=== PATIENT | female | born 1945 | race Caucasian/White ===

== ENCOUNTER 2017-04-18 08:00 | Outpatient (CLI) | payer MEDICARE | END 2017-04-18 08:01 | disposition home or self-care (01) | LOC: BICMAMMO 08:00 | PROVIDERS: ATTEND Family Medicine | DX: Z12.31 Encounter for screening mammogram for malignant neoplasm of breast (principal) | CPT/HCPCS: 77063; G0202; 77067 ==

== ENCOUNTER 2017-06-16 10:18 | Outpatient (CLI) | payer MEDICARE, OTHER ==
[2017-06-16 12:17] LABS: Anion Gap 11 mmol/L (10-20); BUN (Urea Nitrogen) 16 mg/dL (9.8-20.1); Calc. Creatinine Clearance 0 mL/min (70-130); Calcium 9.9 mg/dL (7.8-10.44); Carbon Dioxide 28 mmol/L (23-31); Chloride 106 mmol/L (98-107); Estimated GFR-MDRD 81; Glucose 107 mg/dL (83-110); Potassium 4.1 mmol/L (3.5-5.1); Sodium 141 mmol/L (136-145)
[2017-06-16 12:18] LABS: #Eosinphils 0.1 thou/uL (0.0-0.7); #Lymphocytes 0.7 thou/uL (1.20-3.40); #Monocytes 0.2 thou/uL (0.11-0.59); #Neutrophils 1.7 thou/uL (1.40-6.50); %Eosinophils 4.3 % (0.0-10.0); %Lymphocytes 25.8 % (21.0-51.0); %Monocytes 8.5 % (0.0-10.0); %Neutrophils 60.3 % (42.0-75.0); Hemoglobin 13.1 g/dL (12.0-16.0); Mean Corpuscular HGB CONC 33.5 g/dL (32.0-36.0); Mean Corpuscular Hemoglobin 32.9 pg (27.0-31.0); Mean Corpuscular Volume 98.1 fl (81.0-99.0); Mean Platelet Volume 9.2 fL (7.4-10.4); Platelet Count 82 thou/uL (130-400); RBC Distribution Width 13.4 % (11.5-14.5); Red Blood Cell (RBC) Count 3.99 mill/uL (4.20-5.40); White Blood Cell (WBC) Count 2.8 thou/uL (4.8-10.8)
--- NOTE | 2017-08-23 13:40 | EKG ---
Test Reason : Blood Pressure : / mmHG Vent. Rate : 068 BPM Atrial Rate : 068 BPM P-R Int : 194 ms QRS Dur : 094 ms QT Int : 430 ms P-R-T Axes : 064 060 071 degrees QTc Int : 457 ms Normal sinus rhythm Cannot rule out Anterior infarct , age undetermined Confirmed by ANDREY MORRIS, JASE ([id number]) on 08/23/2017 1:40:41 PM Referred By: WHITNEY Confirmed By:JASE BALDERAS MD
== END 2017-06-16 10:19 | disposition home or self-care (01) ==
LOC: LABBT 10:18
PROVIDERS: ATTEND Surgery
DX: Z01.810 Encounter for preprocedural cardiovascular examination (principal); Z01.812 Encounter for preprocedural laboratory examination; K43.2 Incisional hernia without obstruction or gangrene
CPT/HCPCS: 80048; 85025; 93005; 93010

== ENCOUNTER → 2017-06-19 | Day surgery (SDC) | payer MEDICARE, OTHER ==
[2017-06-16 10:42] VITALS: BMI 35.5
[~2017-06-19] MED LIST: Bupivacaine 0.25% HCL 30 ML VIAL ONE; CEFAZOLIN/Water 2 GM/20 ML SYRINGE ONE; Dexamethasone 20 MG/5 ML VIAL ONE; Fentanyl 100 MCG/2 ML VIAL ONE; Glycopyrrolate 0.2 MG/ML 5 ML SYRINGE ONE; HYDROmorphone 0.5 MG/0.5 ML SYRINGE ONE; Ketorolac Tromethamine 30 MG/ML VIAL ONE; Lidocaine 1% PF 5 ML VIAL ONE; Lidocaine 1% w/Epinephrine 1:200K 30 ML VIAL ONE; Metoclopramide HCl 10 MG/2 ML VIAL ONE; Ondansetron PF 4 MG/2 ML Vial ONE; PROPOFOL 200 MG/20 ML VIAL ONE; Succinylcholine Chloride 20 MG/ML 10 ml SYRINGE FS ONE
--- NOTE | 2017-06-19 13:34 | OP ---
DATE OF PROCEDURE: 06/19/2017 PREOPERATIVE DIAGNOSIS: Incisional hernia. POSTOPERATIVE DIAGNOSIS: Incisional hernia. PROCEDURE: Laparoscopic da Addy incisional hernia repair with Symbotex mesh 10 x 15 cm. SURGEON: Joe Draper M.D. ANESTHESIA: General. ESTIMATED BLOOD LOSS: Minimal. COMPLICATIONS: None. TECHNIQUE: The patient was taken to the operating room and laid supine on the table. After general anesthetic was obtained, the arms were tucked at the side. A Moreno catheter was placed. The abdomen is prepped and draped in a sterile fashion. Left subcostal 12 mm Optiview trocar placed without inj ury. High-flow pneumoperitoneum was obtained. Left and right upper abdominal and lateral 8 mm robot trocars were placed. The robot was brought in on the patient's right and docked to the ports. Ther e were several posterior abdominal wall adhesions that were taken down using sharp dissection with ca utery. There was no damage to any intraabdominal structures during the dissection. There were sever al small defects in the posterior midline around the umbilicus, none of them more than a centimeter i n size. The peritoneum was taken down exposing the posterior fascia. Because there were multiple sm all defects the decision was made not to close these, 10 x [address] mesh brought into the s terile field. The center was marked, a Vicryl suture was placed. It was rolled and placed into the abdominal cavity. A GraNee needle was able to pull it up over the center of the defects and hold the mesh up against the posterior abdominal wall. Barbed absorbable suture double armed was used to sew the periphery of the mesh to the posterior fascia circumferentially all the way around. The sutures on the other side were overlapped to lock them in place. [place] were both removed from the abdomin al cavity. All port sites were infiltrated using local anesthetic. No ongoing bleeding in the abdom en, no evidence of any damage to any intraabdominal structures. The 12 mm camera trocar was closed u sing GraNee needle Vicryl tie, pneumoperitoneum was let down. The ports were removed and the skin in cisions were closed using 4-0 Monocryl and Dermabond. The patient was en route to recovery room in s table condition. All instrument counts, needle counts, and lap counts were correct.
== END ==
LOC: SDC 05:46
PROVIDERS: ATTEND Surgery
PROC: 0WUF4JZ Supplement Abdominal Wall with Synthetic Substitute, Percutaneous Endoscopic Approach (ICD-10-PCS; principal; 2017-06-19)
PROC: 8E0W4CZ Robotic Assisted Procedure of Trunk Region, Percutaneous Endoscopic Approach (ICD-10-PCS; 2017-06-19)
DX: K43.2 Incisional hernia without obstruction or gangrene (principal); E11.9 Type 2 diabetes mellitus without complications; Z79.84 Long term (current) use of oral hypoglycemic drugs; Z79.82 Long term (current) use of aspirin; Z79.2 Long term (current) use of antibiotics; Z79.899 Other long term (current) drug therapy; Z98.51 Tubal ligation status; Z90.49 Acquired absence of other specified parts of digestive tract; Z90.710 Acquired absence of both cervix and uterus; Z98.890 Other specified postprocedural states
CPT/HCPCS: J0131; J1100; J1170; J1885; J2001; J2405; J2704; J2765; J3010; S0020

== ENCOUNTER 2018-04-20 11:12 | Outpatient (CLI) | payer MEDICARE, OTHER | END 2018-04-20 11:13 | disposition home or self-care (01) | LOC: BICMAMMO 11:12 | PROVIDERS: ATTEND Family Medicine | DX: Z12.31 Encounter for screening mammogram for malignant neoplasm of breast (principal) | CPT/HCPCS: 77063; 77067 ==

== ENCOUNTER 2018-11-16 12:51 | Outpatient (CLI) | payer MEDICARE, OTHER ==
--- NOTE | 2018-11-16 14:59 | RAD ---
RIGHT ANKLE 3 VIEWS: HISTORY: Right ankle pain, injury. FINDINGS/IMPRESSION: Soft tissue swelling is present. The ankle mortise is maintained. No acute fracture or dislocation is seen. There are calcaneal spurs. POS: OFF
== END 2018-11-16 12:52 | disposition home or self-care (01) ==
LOC: BICRAD 12:51
PROVIDERS: ATTEND Family Medicine
DX: S96.911A Strain of unspecified muscle and tendon at ankle and foot level, right foot, initial encounter (principal); M79.89 Other specified soft tissue disorders; M77.31 Calcaneal spur, right foot

== ENCOUNTER 2019-04-21 09:15 | Outpatient (CLI) | payer MEDICARE, OTHER ==
--- NOTE | 2019-04-21 10:16 | MMO ---
Bilateral MAMMO Bilat Screen [facility]. CLINICAL HISTORY: Patient is 73 years old and is seen for screening. The patient has no family history of breast cancer. The patient has no personal history of cancer. VIEWS: The views performed were: bilateral craniocaudal with tomosynthesis and bilateral mediolateral oblique with tomosynthesis. FILMS COMPARED: The present examination has been compared to prior imaging studies performed at [facility] on 04/17/2016, 04/18/2017 and 04/20/2018, and at [facility] on 01/27/2015. This study has been interpreted with the assistance of computer-aided detection. MAMMOGRAM FINDINGS: There are scattered fibroglandular densities. There are stable benign appearing calcifications seen in both breasts. There are no suspicious masses, suspicious calcifications, or new areas of architectural distortion. IMPRESSION: THERE IS NO MAMMOGRAPHIC EVIDENCE OF MALIGNANCY. A ROUTINE FOLLOW-UP MAMMOGRAM IN 1 YEAR IS RECOMMENDED. THE RESULTS OF THIS EXAM WERE SENT TO THE PATIENT. ACR BI-RADS Category 2 - Benign finding MAMMOGRAPHY NOTE: 1. A negative mammogram report should not delay a biopsy if a dominant of clinically suspicious mass is present. 2. Approximately 10% to 15% of breast cancers are not detected by mammography. 3. Adenosis and dense breasts may obscure an underlying neoplasm. Reported by: ALISSA SANCHEZ MD Electonically Signed: [id number]
== END 2019-04-21 09:16 | disposition home or self-care (01) ==
LOC: BICMAMMO 09:15
PROVIDERS: ATTEND Family Medicine
DX: Z12.31 Encounter for screening mammogram for malignant neoplasm of breast (principal)
CPT/HCPCS: 77063; 77067

== ENCOUNTER 2019-08-09 07:04 | Outpatient (CLI) | payer MEDICARE, OTHER ==
--- NOTE | 2019-08-09 07:42 | ULT ---
Sonogram abdomen complete HISTORY: Cirrhosis. Abdominal pain. Splenomegaly. FINDINGS: Gallbladder is surgically absent. Common duct is 0.8 cm. Liver is heterogeneous with a nodular contour. No focal mass or intrahepatic biliary dilatation. No f ree fluid. Spleen measures up to 16.7 cm. Cortical thinning of each kidney. Visualized portions of abdominal aorta, IVC, and pancreas are withi n normal limits. IMPRESSION : Status post cholecystectomy. No evidence of biliary obstruction. Cirrhotic appearance of the liver. Findings of portal venous hypertension include moderate splenomega ly. Mild diffuse bilateral renal cortical atrophy.
== END 2019-08-09 07:05 | disposition home or self-care (01) ==
LOC: BICULT 07:04
PROVIDERS: ATTEND Internal Medicine Hematology & Oncology
DX: K74.60 Unspecified cirrhosis of liver (principal); K75.81 Nonalcoholic steatohepatitis (NASH); R16.1 Splenomegaly, not elsewhere classified; N28.89 Other specified disorders of kidney and ureter; K76.6 Portal hypertension; Z90.49 Acquired absence of other specified parts of digestive tract
CPT/HCPCS: 93975

== ENCOUNTER 2020-04-21 08:18 | Outpatient (CLI) | payer MEDICARE, OTHER ==
--- NOTE | 2020-04-21 09:39 | ULT ---
HEPATIC ULTRASOUND AND DOPPLER: Date: 04/21/2020 Lorenzo scale images of the liver obtained, along with Doppler studies of the hepatic vessels with color Doppler and spectral analysis. INDICATION: Cirrhosis. FINDINGS: Liver is mildly heterogeneous with mildly irregular margins consistent with the history of cirrhosis. No liver mass identified. Color Doppler and spectral analysis performed of hepatic vessels. Portal veins, hepatic veins, hepati c artery, and splenic vein all show normal direction of blood flow. The spleen is enlarged measuring up to 17.0 cm, suggesting portal hypertension. Patient is status post cholecystectomy. The common bile duct is mildly prominent, measured at 8.0 mm, which is probably related to the post c holecystectomy status. No significant intrahepatic ductal dilatation. The pancreas is partially imaged and appears unremarkable as visualized. Right kidney is not imaged. IMPRESSION: 1. Liver is mildly heterogeneous with irregular margins consistent with history of cirrhosis. No dorian er mass. 2. Hepatic Doppler studies show normal blood flow in the hepatic vessels. 3. Splenomegaly is noted. POS: AGW
== END 2020-04-21 08:19 | disposition home or self-care (01) ==
LOC: BICULT 08:18
PROVIDERS: ATTEND Internal Medicine
DX: K74.60 Unspecified cirrhosis of liver (principal); R60.0 Localized edema; K76.89 Other specified diseases of liver; R16.1 Splenomegaly, not elsewhere classified
CPT/HCPCS: 76705

== ENCOUNTER 2020-09-29 08:42 | Outpatient (CLI) | payer MEDICARE, OTHER | END 2020-09-29 08:43 | disposition home or self-care (01) | LOC: BICULT 08:42 | PROVIDERS: ATTEND Internal Medicine | DX: K74.60 Unspecified cirrhosis of liver (principal); I85.00 Esophageal varices without bleeding; R60.0 Localized edema; Z90.49 Acquired absence of other specified parts of digestive tract | CPT/HCPCS: 76705 ==

== ENCOUNTER 2021-10-17 08:25 | Outpatient (CLI) | payer MEDICARE, OTHER | END 2021-10-17 08:26 | disposition home or self-care (01) | LOC: BICULT 08:25 | PROVIDERS: ATTEND Internal Medicine | DX: K74.60 Unspecified cirrhosis of liver (principal); I85.10 Secondary esophageal varices without bleeding; R60.0 Localized edema; R16.1 Splenomegaly, not elsewhere classified; Z90.49 Acquired absence of other specified parts of digestive tract | CPT/HCPCS: 76705 ==

== ENCOUNTER 2023-01-04 18:50 | Inpatient (IN) | payer MEDICARE, OTHER ==
[2023-01-04 20:00] LABS: #Eosinphils 0.1 thou/uL (0.0-0.7); #Monocytes 0.3 thou/uL (0.11-0.59); #Neutrophils 4.8 thou/uL (1.40-6.50); %Basophils 0.4 % (0.0-1.0); %Eosinophils 0.9 % (0.0-10.0); %Lymphocytes 4.1 % (21.0-51.0); %Monocytes 5.2 % (0.0-10.0); Hematocrit 29.7 % (36.0-47.0); Hemoglobin 10.2 g/dL (12.0-16.0); Mean Corpuscular HGB CONC 34.3 g/dL (32.0-36.0); Mean Corpuscular Hemoglobin 33.7 pg (27.0-31.0); Mean Platelet Volume 10.9 fL (7.4-10.4); Red Blood Cell (RBC) Count 3.03 mill/uL (4.20-5.40); White Blood Cell (WBC) Count 5.4 10x3/uL (4.8-10.8)
[2023-01-04 20:01] LABS: Platelet Count 70 10x3/uL (130-400)
[2023-01-04 20:20] LABS: ALT (SGPT) 27 U/L (8-55); AST (SGOT) 38 U/L (5-34); Alkaline Phosphatase 90 U/L (40-110); Anion Gap 14 mmol/L (10-20); BUN (Urea Nitrogen) 33 mg/dL (9.8-20.1); Bilirubin, Total 2.3 mg/dL (0.2-1.2); Calc. Creatinine Clearance 0 mL/min (70-130); Calcium 9.2 mg/dL (7.8-10.44); Carbon Dioxide 19 mmol/L (23-31); Chloride 109 mmol/L (98-107); Estimated GFR 27; Globulin 3.5 g/dL (2.4-3.5); Glucose 134 mg/dL (83-110); Potassium 4.8 mmol/L (3.5-5.1); Protein, Total 6.5 g/dL (5.8-8.1); Sodium 137 mmol/L (136-145)
[2023-01-04 20:24] LABS: Troponin I 0.047 ng/mL (< 0.028)
[2023-01-04] MEDS ORDERED: Aspirin Chewable 81 MG TAB ONE (20:54)
[2023-01-04] MEDS ORDERED: Ondansetron ODT 4 MG TAB PO PRN (21:35)
[2023-01-04] MEDS ORDERED: Senokot S 8.6-50 MG TAB PO PRN (21:35)
[2023-01-04] MEDS ORDERED: Acetaminophen 325 MG TAB PO PRN (21:35)
[2023-01-04] MEDS ORDERED: Calcium Carbonate 500 MG ChewTAB PO PRN (21:35)
[2023-01-04 23:28] LABS: Hemoglobin A1c 7.1 % (4.0-6.0)
[2023-01-04 23:46] LABS: Troponin I 0.083 ng/mL (< 0.028)
[2023-01-05 00:03] VITALS: BMI 37.0
[2023-01-05 01:51] LABS: Troponin I 0.093 ng/mL (< 0.028)
[2023-01-05 05:02] LABS: #Monocytes 0.3 thou/uL (0.11-0.59); #Neutrophils 4.1 thou/uL (1.40-6.50); %Basophils 0.4 % (0.0-1.0); %Eosinophils 0.4 % (0.0-10.0); %Monocytes 6.7 % (0.0-10.0); %Neutrophils 86.1 % (42.0-75.0); Hematocrit 24.7 % (36.0-47.0); Hemoglobin 8.2 g/dL (12.0-16.0); Mean Corpuscular HGB CONC 33.2 g/dL (32.0-36.0); Mean Corpuscular Hemoglobin 33.3 pg (27.0-31.0); Mean Corpuscular Volume 100.4 fl (78.0-98.0); Mean Platelet Volume 11.1 fL (7.4-10.4); RBC Distribution Width 14.1 % (11.5-14.5); Red Blood Cell (RBC) Count 2.46 mill/uL (4.20-5.40); White Blood Cell (WBC) Count 4.8 10x3/uL (4.8-10.8)
[2023-01-05 05:12] LABS: Platelet Count 59 10x3/uL (130-400)
[2023-01-05 05:14] LABS: Manual Diff?? YES
[2023-01-05 05:27] LABS: Anion Gap 13 mmol/L (10-20); BUN (Urea Nitrogen) 35 mg/dL (9.8-20.1); Calc. Creatinine Clearance 38 mL/min (70-130); Calcium 8.5 mg/dL (7.8-10.44); Carbon Dioxide 19 mmol/L (23-31); Chloride 108 mmol/L (98-107); Estimated GFR 27; Glucose 252 mg/dL (83-110); Magnesium 1.3 mg/dL (1.6-2.6); Sodium 134 mmol/L (136-145)
[2023-01-05] MEDS ORDERED: Glucagon 1 MG/ML KIT IM PRN (05:47)
[2023-01-05] MEDS ORDERED: Dextrose 50% Abboject 50 ML SYRINGE SLOW IVP PRN (05:47)
[2023-01-05] MEDS ORDERED: Dextrose 5% in Water 1,000 ML IV PRN (05:47)
[2023-01-05] MEDS ORDERED: HumaLOG 300 UNITS/3 ML VIAL SC PRN (05:47)
[2023-01-05] MEDS ORDERED: Magnesium 2 GM/50 ML(in water) 2 GM in Premix Bag 1 BAG IVPB SCH (06:00)
[2023-01-05] MEDS ORDERED: Insulin Regular 300 UNITS/3 ML VIAL IVP SCH (06:00)
[2023-01-05 06:03] LABS: Anisocytosis SLIGHT = 6-15 cells HPF (0-5); Band 12 % (5-11); Burr Cells MODERATE= 6-15 cells HPF (0-1); CellaVision Operator ID lab.sh2; Eosinophils 1 % (0-10); Lymphocytes 5 % (21-51); Macrocytosis SLIGHT = 6-15 cells HPF (0-5); Monocytes 1 % (0-10); Neutrophil 80 % (42-75); Ovalocytes SLIGHT = 2-5 cells HPF (0-1); Platelet Adequacy Comment Significant decrease; Poikilocytosis MODERATE=16-30 cells HPF (0-5); Polychromasia SLIGHT = 2-3 cells HPF (0-2); Smudge Cells 2.9 %; Total Cell Count 102
[2023-01-05] MEDS ORDERED: Calcium Gluc 4.6 MEQ/10 ML (100 MG/ML) SLOW IVP SCH (08:45)
[2023-01-05] MEDS ORDERED: Sodium Chloride 0.9% 1,000 ML IV SCH (08:45)
[2023-01-05] MEDS ORDERED: Magnesium Sulfate In Water 4 GM in Premix Bag 1 BAG IVPB SCH (08:45)
[2023-01-05] MEDS: HumaLOG 300 UNITS/3 ML VIAL SC PRN ×2 (09:53→12:11)
[2023-01-05] MEDS: Flecainide 50 MG TAB PO SCH ×2 (09:55→20:57)
[2023-01-05] MEDS: Carvedilol 6.25 MG TAB PO SCH ×2 (09:55→20:53)
[2023-01-05] MEDS: Famotidine 20 MG TAB PO SCH (09:56)
[2023-01-05 12:54] LABS: Anion Gap 12 mmol/L (10-20); BUN (Urea Nitrogen) 38 mg/dL (9.8-20.1); Calc. Creatinine Clearance 35 mL/min (70-130); Calcium 9.1 mg/dL (7.8-10.44); Carbon Dioxide 22 mmol/L (23-31); Chloride 107 mmol/L (98-107); Estimated GFR 24; Glucose 181 mg/dL (83-110); Potassium 4.7 mmol/L (3.5-5.1); Sodium 136 mmol/L (136-145)
[2023-01-05] MEDS: Sodium Chloride 0.9% 1,000 ML IV SCH (13:35)
[2023-01-06] MEDS: Sodium Chloride 0.9% 1,000 ML IV SCH ×2 (02:00→16:20)
[2023-01-06 05:11] LABS: #Eosinphils 0.1 thou/uL (0.0-0.7); #Monocytes 0.3 thou/uL (0.11-0.59); #Neutrophils 1.4 thou/uL (1.40-6.50); %Basophils 0.9 % (0.0-1.0); %Eosinophils 3.1 % (0.0-10.0); %Lymphocytes 22.4 % (21.0-51.0); %Monocytes 12.3 % (0.0-10.0); %Neutrophils 60.9 % (42.0-75.0); Hematocrit 23.6 % (36.0-47.0); Hemoglobin 7.8 g/dL (12.0-16.0); Mean Corpuscular HGB CONC 33.1 g/dL (32.0-36.0); Mean Corpuscular Hemoglobin 33.1 pg (27.0-31.0); RBC Distribution Width 14.3 % (11.5-14.5); Red Blood Cell (RBC) Count 2.36 mill/uL (4.20-5.40); White Blood Cell (WBC) Count 2.3 10x3/uL (4.8-10.8)
[2023-01-06 05:13] LABS: Platelet Count 54 10x3/uL (130-400)
[2023-01-06 05:33] LABS: Anion Gap 11 mmol/L (10-20); BUN (Urea Nitrogen) 36 mg/dL (9.8-20.1); Calc. Creatinine Clearance 41 mL/min (70-130); Calcium 8.3 mg/dL (7.8-10.44); Carbon Dioxide 20 mmol/L (23-31); Chloride 109 mmol/L (98-107); Estimated GFR 30; Glucose 124 mg/dL (83-110); Magnesium 1.7 mg/dL (1.6-2.6); Potassium 4.5 mmol/L (3.5-5.1); Sodium 135 mmol/L (136-145)
[2023-01-06] MEDS ORDERED: Magnesium 2 GM/50 ML(in water) 2 GM in Premix Bag 1 BAG IVPB SCH (09:15)
[2023-01-06] MEDS: Famotidine 20 MG TAB PO SCH (09:28)
[2023-01-06] MEDS: Flecainide 50 MG TAB PO SCH ×2 (09:28→22:40)
[2023-01-06] MEDS: Carvedilol 6.25 MG TAB PO SCH ×2 (09:28→22:40)
[2023-01-06] MEDS: HumaLOG 300 UNITS/3 ML VIAL SC PRN ×2 (11:47→17:11)
[2023-01-06 15:13] LABS: Magnesium 1.8 mg/dL (1.6-2.6)
[2023-01-07 05:58] LABS: #Eosinphils 0.1 thou/uL (0.0-0.7); #Monocytes 0.2 thou/uL (0.11-0.59); #Neutrophils 1.5 thou/uL (1.40-6.50); %Basophils 0.8 % (0.0-1.0); %Eosinophils 2.5 % (0.0-10.0); %Lymphocytes 24.4 % (21.0-51.0); %Monocytes 9.7 % (0.0-10.0); %Neutrophils 61.8 % (42.0-75.0); Hematocrit 24.6 % (36.0-47.0); Hemoglobin 8.4 g/dL (12.0-16.0); Mean Corpuscular HGB CONC 34.1 g/dL (32.0-36.0); Mean Corpuscular Hemoglobin 33.6 pg (27.0-31.0); Mean Corpuscular Volume 98.4 fl (78.0-98.0); Mean Platelet Volume 10.8 fL (7.4-10.4); RBC Distribution Width 14.2 % (11.5-14.5); White Blood Cell (WBC) Count 2.4 10x3/uL (4.8-10.8)
[2023-01-07 06:02] LABS: Platelet Count 61 10x3/uL (130-400)
[2023-01-07 06:17] LABS: Anion Gap 9 mmol/L (10-20); BUN (Urea Nitrogen) 31 mg/dL (9.8-20.1); Calc. Creatinine Clearance 44 mL/min (70-130); Calcium 8.3 mg/dL (7.8-10.44); Carbon Dioxide 21 mmol/L (23-31); Chloride 112 mmol/L (98-107); Estimated GFR 32; Glucose 166 mg/dL (83-110); Potassium 4.6 mmol/L (3.5-5.1); Sodium 137 mmol/L (136-145)
[2023-01-07] MEDS: HumaLOG 300 UNITS/3 ML VIAL SC PRN ×2 (06:18→08:06)
[2023-01-07] MEDS: Sodium Chloride 0.9% 1,000 ML IV SCH (06:25)
[2023-01-07] MEDS: Carvedilol 6.25 MG TAB PO SCH (07:56)
[2023-01-07] MEDS: Flecainide 50 MG TAB PO SCH (07:57)
[2023-01-07] MEDS: Famotidine 20 MG TAB PO SCH (07:57)
[2023-01-07] MEDS ORDERED: Magnesium Oxide 400 MG TAB PO SCH (09:00)
[2023-01-07 11:38] LABS: INR-International Normal Ratio 1.4; Prothrombin Time 17.6 sec (12.0-14.7)
[2023-01-07 12:28] VITALS: TEMP 97.8
[2023-01-07 15:48] VITALS: BP 142/67
== END 2023-01-07 16:46 | disposition home or self-care (01) | DRG 640 ==
LOC: ERS 18:50 → 2NO 21:36 → OBSVTOIN 01-05 07:57
PROVIDERS: ADMIT Student in an Organized Health Care Education/Training Program; ATTEND Internal Medicine
DX: E86.9 Volume depletion, unspecified (principal); I81 Portal vein thrombosis; N17.9 Acute kidney failure, unspecified; D61.818 Other pancytopenia; R18.8 Other ascites; K74.60 Unspecified cirrhosis of liver; I25.10 Atherosclerotic heart disease of native coronary artery without angina pectoris; I12.9 Hypertensive chronic kidney disease with stage 1 through stage 4 chronic kidney disease, or unspecified chronic kidney disease; E87.5 Hyperkalemia; N18.30 Chronic kidney disease, stage 3 unspecified; E83.42 Hypomagnesemia; I48.0 Paroxysmal atrial fibrillation; E11.22 Type 2 diabetes mellitus with diabetic chronic kidney disease; K75.81 Nonalcoholic steatohepatitis (NASH); Z90.710 Acquired absence of both cervix and uterus; Z82.49 Family history of ischemic heart disease and other diseases of the circulatory system; Z79.82 Long term (current) use of aspirin; Z79.899 Other long term (current) drug therapy; Z79.84 Long term (current) use of oral hypoglycemic drugs; Z83.3 Family history of diabetes mellitus; E86.0 Dehydration; H35.30 Unspecified macular degeneration; Z90.49 Acquired absence of other specified parts of digestive tract; Z90.89 Acquired absence of other organs
CPT/HCPCS: 36415; 36416; 70450; 71045; 76705; 80048; 80053; 83036; 83735; 83880; 84484; 85025; 85610; 93005; 93306; 93880; 94760; G0378; J0612; J1650; J1815; J3475; J7050

== ENCOUNTER 2023-01-14 08:28 | Emergency (ER) | payer MEDICARE, OTHER ==
[2023-01-14 09:14] LABS: #Eosinphils 0.1 thou/uL (0.0-0.7); #Monocytes 0.3 thou/uL (0.11-0.59); #Neutrophils 2.9 thou/uL (1.40-6.50); %Basophils 0.7 % (0.0-1.0); %Eosinophils 2.7 % (0.0-10.0); %Monocytes 7.1 % (0.0-10.0); %Neutrophils 70.8 % (42.0-75.0); Hematocrit 28.4 % (36.0-47.0); Hemoglobin 9.4 g/dL (12.0-16.0); Mean Corpuscular HGB CONC 33.1 g/dL (32.0-36.0); Mean Corpuscular Hemoglobin 33.5 pg (27.0-31.0); Mean Corpuscular Volume 101.1 fl (78.0-98.0); Mean Platelet Volume 10.4 fL (7.4-10.4); RBC Distribution Width 14.6 % (11.5-14.5); Red Blood Cell (RBC) Count 2.81 mill/uL (4.20-5.40); White Blood Cell (WBC) Count 4.1 10x3/uL (4.8-10.8)
[2023-01-14 09:17] LABS: Platelet Count 82 10x3/uL (130-400)
[2023-01-14 09:39] LABS: ALT (SGPT) 26 U/L (8-55); AST (SGOT) 36 U/L (5-34); Albumin 2.9 g/dL (3.4-4.8); Alkaline Phosphatase 94 U/L (40-110); Anion Gap 12 mmol/L (10-20); BUN (Urea Nitrogen) 22 mg/dL (9.8-20.1); Bilirubin, Total 2.9 mg/dL (0.2-1.2); Calc. Creatinine Clearance 0 mL/min (70-130); Calcium 8.9 mg/dL (7.8-10.44); Carbon Dioxide 24 mmol/L (23-31); Chloride 108 mmol/L (98-107); Estimated GFR 41; Globulin 3.4 g/dL (2.4-3.5); Glucose 132 mg/dL (83-110); Potassium 4.7 mmol/L (3.5-5.1); Protein, Total 6.3 g/dL (5.8-8.1); Sodium 139 mmol/L (136-145)
[2023-01-14] MEDS ORDERED: HYDROcodone/Acetaminophen 5/325 mg Tablet ONE (09:43)
[2023-01-14] MEDS ORDERED: cefTRIAXone (ROCEPHIN) 1 GM VIAL ONE (12:09)
[2023-01-14] MEDS ORDERED: Vancomycin 1.5 GRAM/300 ML BAG 1.5 GM in Premix Bag 1 BAG IVPB SCH (13:00)
[2023-01-14] MEDS ORDERED: Morphine 4 MG/ML VIAL ONE (13:57)
[2023-01-14] MEDS ORDERED: Ondansetron PF 4 MG/2 ML Vial ONE (13:57)
== END 2023-01-14 14:48 | disposition short-term general hospital (02) ==
LOC: ERS 08:28
DX: L03.114 Cellulitis of left upper limb (principal); E11.9 Type 2 diabetes mellitus without complications; I48.91 Unspecified atrial fibrillation; Z79.82 Long term (current) use of aspirin; Z79.84 Long term (current) use of oral hypoglycemic drugs
CPT/HCPCS: 73130; 80053; 85025; 96365; 96367; 96375; 99284; J3370; 36415; J0696; J2270; J2405

== ENCOUNTER 2023-11-17 13:44 | Emergency (ER) | payer MEDICARE, OTHER ==
[2023-11-17] MEDS ORDERED: HYDROcodone/Acetaminophen 5/325 mg Tablet ONE (14:47)
[2023-11-17] MEDS ORDERED: predniSONE 20 MG TAB ONE (15:57)
[2023-11-17 16:05] LABS: Bacteria/HPF None Seen HPF (None Seen); Bilirubin Negative (Negative); Blood, Urine 1+ (Negative); CAUTI Indications for Culture Dysuria,urgency,freq; Clarity Clear (Clear); Glucose, Urine (Dipstick) Normal (Negative); Ketone, Urine Negative (Negative); Leukocyte Negative Leu/uL (Negative); Nitrite Negative (Negative); Protein, Urine (Dipstick) Negative (Neg-Trace); RBC/HPF 0-3 HPF (0-3); Specific Gravity, Urine 1.008 (1.002-1.036); Squamous Epithelial 0-3 HPF (0-3); Urobilinogen Normal mg/dL (Less than 2); WBC/HPF 0-3 HPF (0-3); pH, Urine 6.5 (5.0-9.0)
[2023-11-17 16:15] LABS: Urine Culture Reflex No No
[2023-11-17] MEDS ORDERED: Morphine 4 MG/ML VIAL ONE (22:41)
== END 2023-11-17 23:11 | disposition home or self-care (01) ==
LOC: ERS 13:44
DX: S22.080A Wedge compression fracture of T11-T12 vertebra, initial encounter for closed fracture (principal); E11.9 Type 2 diabetes mellitus without complications; I48.91 Unspecified atrial fibrillation; X50.0XXA Overexertion from strenuous movement or load, initial encounter; Y93.89 Activity, other specified
CPT/HCPCS: 72131; 81001; J2270; 96372; J7512

== ENCOUNTER 2023-11-20 16:40 | Inpatient (IN) | payer MEDICARE, OTHER ==
[2023-11-20 17:14] LABS: #Basophils Less than 0.03 10x3/uL (0.0-0.2); %Basophils 0.5 % (0.0-1.0); %Eosinophils 4.1 % (0.0-10.0); %Monocytes 8.7 % (0.0-10.0); %Neutrophils 65.2 % (42.0-75.0); Hematocrit 29.2 % (36.0-47.0); Mean Corpuscular HGB CONC 34.2 g/dL (32.0-36.0); Mean Corpuscular Hemoglobin 32.5 pg (27.0-31.0); Mean Corpuscular Volume 94.8 fL (78.0-98.0); Mean Platelet Volume 11.6 fL (7.4-10.4); Platelet Count 76 10x3/uL (130-400); RBC Distribution Width 14.3 % (11.5-14.5); Red Blood Cell (RBC) Count 3.08 mill/uL (4.20-5.40)
[2023-11-20 17:24] LABS: ALT (SGPT) 25 U/L (8-55); AST (SGOT) 37 U/L (5-34); Albumin 2.7 g/dL (3.4-4.8); Alkaline Phosphatase 100 U/L (40-110); Anion Gap 15 mmol/L (10-20); BUN (Urea Nitrogen) 76 mg/dL (9.8-20.1); Bilirubin, Total 1.7 mg/dL (0.2-1.2); Calc. Creatinine Clearance 0 mL/min (70-130); Calcium 8.8 mg/dL (7.8-10.44); Carbon Dioxide 20 mmol/L (23-31); Chloride 101 mmol/L (98-107); Estimated GFR 11; Globulin 3.4 g/dL (2.4-3.5); Glucose 326 mg/dL (83-110); Potassium 5.6 mmol/L (3.5-5.1); Protein, Total 6.1 g/dL (5.8-8.1); Sodium 130 mmol/L (136-145)
[2023-11-20 17:44] LABS: Bacteria/HPF None Seen HPF (None Seen); Bilirubin Negative (Negative); Blood, Urine Trace (Negative); CAUTI Indications for Culture Alt mental st,lethar; Clarity Clear (Clear); Glucose, Urine (Dipstick) Normal (Negative); Ketone, Urine Negative (Negative); Leukocyte Negative Leu/uL (Negative); Nitrite Negative (Negative); Protein, Urine (Dipstick) Negative (Neg-Trace); RBC/HPF 0-3 HPF (0-3); Specific Gravity, Urine 1.011 (1.002-1.036); WBC/HPF 0-3 HPF (0-3); pH, Urine 5.5 (5.0-9.0)
[2023-11-20 17:46] LABS: Urine Culture Reflex No No
[2023-11-20] MEDS ORDERED: Ondansetron PF 4 MG/2 ML Vial IVP PRN (19:13)
[2023-11-20] MEDS ORDERED: Ondansetron ODT 4 MG TAB PO PRN (19:13)
[2023-11-20] MEDS ORDERED: Acetaminophen 325 MG TAB PO PRN (19:13)
[2023-11-20] MEDS ORDERED: Acetaminophen 650 MG Suppository PR PRN (19:13)
[2023-11-20] MEDS ORDERED: Sodium Polystyrene Sulfonate 15 GM (60 mL) BOT ONE (19:15)
[2023-11-20] MEDS ORDERED: Insulin Regular, Human 100 UNIT/ML 10 ML VIAL ONE (19:15)
[2023-11-20] MEDS ORDERED: CALCIUM GLUC 1 GM/NS 50 ML IV Bag ONE (19:15)
[2023-11-20] MEDS ORDERED: Albuterol 2.5 MG (0.5 mL) NEB ONE (19:28)
[2023-11-20] MEDS ORDERED: Albuterol 2.5 MG (3 mL) NEB ONE (19:29)
[2023-11-20 20:56] VITALS: BMI 34.4
[2023-11-20] MEDS ORDERED: Dextrose 50% Abboject 50 ML SYRINGE SLOW IVP PRN (21:18)
[2023-11-20] MEDS ORDERED: Glucagon 1 MG/ML KIT IM PRN (21:18)
[2023-11-20] MEDS ORDERED: Dextrose 5% in Water 1,000 ML IV PRN (21:18)
[2023-11-20] MEDS: Famotidine 20 MG TAB PO SCH (22:46)
[2023-11-20] MEDS: HYDROcodone/Acetaminophen 5/325 mg Tablet PO PRN (22:46)
[2023-11-20] MEDS: Sodium Chloride 0.9% 500 ML IV SCH (22:48)
[2023-11-21 07:43] LABS: Hemoglobin A1c 6.4 % (4.0-6.0)
[2023-11-21 08:22] LABS: #Basophils Less than 0.03 10x3/uL (0.0-0.2); %Basophils 0.6 % (0.0-1.0); %Lymphocytes 19.3 % (21.0-51.0); %Monocytes 9.2 % (0.0-10.0); %Neutrophils 66.6 % (42.0-75.0); Hematocrit 27.2 % (36.0-47.0); Hemoglobin 9.1 g/dL (12.0-16.0); Mean Corpuscular HGB CONC 33.5 g/dL (32.0-36.0); Mean Corpuscular Hemoglobin 32.4 pg (27.0-31.0); Mean Corpuscular Volume 96.8 fL (78.0-98.0); Mean Platelet Volume 11.5 fL (7.4-10.4); Platelet Count 64 10x3/uL (130-400); RBC Distribution Width 14.2 % (11.5-14.5); Red Blood Cell (RBC) Count 2.81 mill/uL (4.20-5.40)
[2023-11-21] MEDS: Carvedilol 6.25 MG TAB PO SCH (09:00)
[2023-11-21] MEDS: Flecainide 50 MG TAB PO SCH (09:00)
[2023-11-21] MEDS ORDERED: Carvedilol 6.25 MG TAB ONE (09:20)
[2023-11-21] MEDS ORDERED: Flecainide 50 MG TAB ONE (09:20)
[2023-11-21] MEDS ORDERED: HYDROcodone/Acetaminophen 5/325 mg Tablet ONE (09:23)
[2023-11-21 11:26] LABS: Potassium 4.9 mmol/L (3.5-5.1)
[2023-11-21 11:27] LABS: Magnesium 1.9 mg/dL (1.6-2.6)
[2023-11-21 12:43] LABS: Anion Gap 12 mmol/L (10-20); BUN (Urea Nitrogen) 73 mg/dL (9.8-20.1); Calc. Creatinine Clearance 21 mL/min (70-130); Calcium 8.7 mg/dL (7.8-10.44); Carbon Dioxide 21 mmol/L (23-31); Chloride 105 mmol/L (98-107); Estimated GFR 14; Glucose 173 mg/dL (83-110); Sodium 133 mmol/L (136-145)
[2023-11-21] MEDS: Albumin 25% 25 GM (100 mL) BOT IVPB SCH ×2 (13:46→16:45)
[2023-11-21] MEDS ORDERED: Albumin 25% 25 GM (100 mL) BOT ONE (15:00)
[2023-11-21 19:43] LABS: Anion Gap 11 mmol/L (10-20); BUN (Urea Nitrogen) 72 mg/dL (9.8-20.1); Calc. Creatinine Clearance 21 mL/min (70-130); Calcium 8.7 mg/dL (7.8-10.44); Carbon Dioxide 23 mmol/L (23-31); Chloride 105 mmol/L (98-107); Estimated GFR 14; Glucose 220 mg/dL (83-110); Potassium 4.7 mmol/L (3.5-5.1); Sodium 134 mmol/L (136-145)
[2023-11-21] MEDS: Famotidine 20 MG TAB PO SCH (20:42)
[2023-11-21] MEDS ORDERED: Famotidine 20 MG TAB PO SCH (21:00)
[2023-11-22 06:56] VITALS: BMI 34.4
[2023-11-22 08:26] LABS: Anion Gap 10 mmol/L (10-20); BUN (Urea Nitrogen) 67 mg/dL (9.8-20.1); Calc. Creatinine Clearance 22 mL/min (70-130); Calcium 8.9 mg/dL (7.8-10.44); Carbon Dioxide 23 mmol/L (23-31); Chloride 109 mmol/L (98-107); Estimated GFR 16; Glucose 147 mg/dL (83-110); Potassium 4.5 mmol/L (3.5-5.1); Sodium 137 mmol/L (136-145)
[2023-11-22 08:36] LABS: #Basophils Less than 0.03 10x3/uL (0.0-0.2); %Basophils 0.5 % (0.0-1.0); %Eosinophils 3.3 % (0.0-10.0); %Lymphocytes 25.8 % (21.0-51.0); %Monocytes 12.7 % (0.0-10.0); %Neutrophils 57.2 % (42.0-75.0); Hematocrit 25.2 % (36.0-47.0); Hemoglobin 8.5 g/dL (12.0-16.0); Mean Corpuscular HGB CONC 33.7 g/dL (32.0-36.0); Mean Corpuscular Hemoglobin 32.1 pg (27.0-31.0); Mean Corpuscular Volume 95.1 fL (78.0-98.0); Mean Platelet Volume 10.6 fL (7.4-10.4); Platelet Count 47 10x3/uL (130-400); RBC Distribution Width 14.3 % (11.5-14.5); Red Blood Cell (RBC) Count 2.65 mill/uL (4.20-5.40)
[2023-11-22] MEDS: Albumin 25% 25 GM (100 mL) BOT IVPB SCH (11:17)
[2023-11-23 04:59] LABS: Anion Gap 8 mmol/L (10-20); BUN (Urea Nitrogen) 58 mg/dL (9.8-20.1); Calc. Creatinine Clearance 27 mL/min (70-130); Calcium 9.1 mg/dL (7.8-10.44); Carbon Dioxide 23 mmol/L (23-31); Chloride 108 mmol/L (98-107); Estimated GFR 19; Glucose 136 mg/dL (83-110); Potassium 4.4 mmol/L (3.5-5.1); Sodium 135 mmol/L (136-145)
[2023-11-23] MEDS: Insulin Lispro 100 UNIT/ML 10 ML VIAL SC PRN (06:51)
[2023-11-23 10:12] LABS: #Basophils Less than 0.03 10x3/uL (0.0-0.2); %Basophils 0.6 % (0.0-1.0); %Eosinophils 3.1 % (0.0-10.0); %Lymphocytes 19.5 % (21.0-51.0); %Monocytes 11.3 % (0.0-10.0); %Neutrophils 64.9 % (42.0-75.0); Hematocrit 22.7 % (36.0-47.0); Hemoglobin 7.7 g/dL (12.0-16.0); Mean Corpuscular HGB CONC 33.9 g/dL (32.0-36.0); Mean Corpuscular Hemoglobin 33.3 pg (27.0-31.0); Mean Corpuscular Volume 98.3 fL (78.0-98.0); Mean Platelet Volume 10.8 fL (7.4-10.4); Platelet Count 43 10x3/uL (130-400); Red Blood Cell (RBC) Count 2.31 mill/uL (4.20-5.40)
[2023-11-23] MEDS: HYDROcodone/Acetaminophen 5/325 mg Tablet PO PRN (21:23)
[2023-11-24 05:21] LABS: Anion Gap 12 mmol/L (10-20); BUN (Urea Nitrogen) 51 mg/dL (9.8-20.1); Calc. Creatinine Clearance 27 mL/min (70-130); Calcium 9.3 mg/dL (7.8-10.44); Carbon Dioxide 23 mmol/L (23-31); Chloride 109 mmol/L (98-107); Estimated GFR 20; Glucose 119 mg/dL (83-110); Potassium 4.7 mmol/L (3.5-5.1); Sodium 139 mmol/L (136-145)
[2023-11-24] MEDS: Polyethylene Glycol 3350 17 GM Packet PO PRN (06:02)
[2023-11-24] MEDS: Cyclobenzaprine 10 MG TAB PO PRN (10:56)
[2023-11-24] MEDS: EPOETIN ALFA-EPBX (ESRD) 10,000 UNITS/ML VIAL SC SCH (14:27)
[2023-11-25 05:43] LABS: Anion Gap 10 mmol/L (10-20); BUN (Urea Nitrogen) 47 mg/dL (9.8-20.1); Calc. Creatinine Clearance 29 mL/min (70-130); Calcium 9.2 mg/dL (7.8-10.44); Carbon Dioxide 25 mmol/L (23-31); Chloride 107 mmol/L (98-107); Estimated GFR 21; Glucose 126 mg/dL (83-110); Potassium 4.9 mmol/L (3.5-5.1); Sodium 137 mmol/L (136-145)
[2023-11-25 11:42] LABS: #Basophils Less than 0.03 10x3/uL (0.0-0.2); %Basophils 0.8 % (0.0-1.0); %Eosinophils 3.7 % (0.0-10.0); %Lymphocytes 16.3 % (21.0-51.0); %Monocytes 10.6 % (0.0-10.0); %Neutrophils 68.2 % (42.0-75.0); Hematocrit 27.4 % (36.0-47.0); Hemoglobin 9.1 g/dL (12.0-16.0); Mean Corpuscular HGB CONC 33.2 g/dL (32.0-36.0); Mean Corpuscular Hemoglobin 32.6 pg (27.0-31.0); Mean Corpuscular Volume 98.2 fL (78.0-98.0); Mean Platelet Volume 10.6 fL (7.4-10.4); Platelet Count 60 10x3/uL (130-400); Red Blood Cell (RBC) Count 2.79 mill/uL (4.20-5.40)
[2023-11-25] MEDS: Insulin Lispro 100 UNIT/ML 10 ML VIAL SC PRN (20:32)
[2023-11-26 12:20] VITALS: BP 112/54; TEMP 97.9
[2023-11-26 13:48] LABS: Phosphorus 2.9 mg/dL (2.3-4.7)
== END 2023-11-26 14:44 | DRG 683 ==
LOC: ERS 16:40 → 2NO 18:49
PROVIDERS: ADMIT Internal Medicine; ATTEND Internal Medicine
PROC: 30233J1 Transfusion of Nonautologous Serum Albumin into Peripheral Vein, Percutaneous Approach (ICD-10-PCS; principal; 2023-11-21)
DX: N17.9 Acute kidney failure, unspecified (principal); D61.818 Other pancytopenia; E87.1 Hypo-osmolality and hyponatremia; K76.6 Portal hypertension; E87.5 Hyperkalemia; E11.65 Type 2 diabetes mellitus with hyperglycemia; E11.22 Type 2 diabetes mellitus with diabetic chronic kidney disease; I12.9 Hypertensive chronic kidney disease with stage 1 through stage 4 chronic kidney disease, or unspecified chronic kidney disease; N18.4 Chronic kidney disease, stage 4 (severe); I25.10 Atherosclerotic heart disease of native coronary artery without angina pectoris; E88.09 Other disorders of plasma-protein metabolism, not elsewhere classified; D63.1 Anemia in chronic kidney disease; I48.0 Paroxysmal atrial fibrillation; K74.60 Unspecified cirrhosis of liver; Z79.82 Long term (current) use of aspirin; Z79.899 Other long term (current) drug therapy; Z98.890 Other specified postprocedural states; Z90.710 Acquired absence of both cervix and uterus; Z87.81 Personal history of (healed) traumatic fracture
CPT/HCPCS: 36415; 36416; 72131; 80048; 81001; 82306; 83036; 83735; 83880; 83970; 84100; 85014; 85018; 85025; 93005; 94644; 96372; 96374; 96375; 97139; J0613; J1815; J2270; J7050; J7512; J7611; P9047; Q5105

== ENCOUNTER 2024-02-10 09:22 | Outpatient (CLI) | payer MEDICARE, OTHER | END 2024-02-10 09:23 | disposition home or self-care (01) | LOC: MRI 09:22 | PROVIDERS: ATTEND Neurological Surgery | DX: S22.008A Other fracture of unspecified thoracic vertebra, initial encounter for closed fracture (principal); S22.089A Unspecified fracture of T11-T12 vertebra, initial encounter for closed fracture; M48.061 Spinal stenosis, lumbar region without neurogenic claudication; R93.7 Abnormal findings on diagnostic imaging of other parts of musculoskeletal system; M48.07 Spinal stenosis, lumbosacral region | CPT/HCPCS: 36415; 72148; 82565 ==

== ENCOUNTER 2024-03-10 09:18 | Outpatient (CLI) | payer MEDICARE, OTHER | END 2024-03-10 09:19 | disposition home or self-care (01) | LOC: RAD 09:18 | PROVIDERS: ATTEND Transplant Surgery | DX: S22.080A Wedge compression fracture of T11-T12 vertebra, initial encounter for closed fracture (principal) | CPT/HCPCS: 72100 ==

== ENCOUNTER 2024-11-23 04:29 | Inpatient (IN) | payer MEDICARE, OTHER ==
[2024-11-23 06:37] LABS: #Basophils Less than 0.03 10x3/uL (0.0-0.2); #Eosinophils 0.08 10x3/uL (0.0-0.7); #Monocytes 0.32 10x3/uL (0.11-0.59); #Neutrophils 2.56 10x3/uL (1.40-6.50); %Basophils 0.6 % (0.0-1.0); %Eosinophils 2.5 % (0.0-10.0); %Lymphocytes 7.4 % (21.0-51.0); %Monocytes 9.8 % (0.0-10.0); %Neutrophils 78.5 % (42.0-75.0); Hematocrit 26.9 % (36.0-47.0); Hemoglobin 9.0 g/dL (12.0-16.0); Mean Corpuscular Hemoglobin 35.4 pg (27.0-31.0); Mean Corpuscular Volume 105.9 fL (78.0-98.0); Platelet Count 69 10x3/uL (130-400); Red Blood Cell (RBC) Count 2.54 mill/uL (4.20-5.40); White Blood Cell (WBC) Count 3.26 10x3/uL (4.8-10.8)
[2024-11-23 06:47] LABS: ALT (SGPT) 49 U/L (Less than 34); AST (SGOT) 83 U/L (11-34); Albumin 1.9 g/dL (3.1-4.5); Alkaline Phosphatase 142 U/L (40-110); Anion Gap 15 mmol/L (10-20); BUN (Urea Nitrogen) 23 mg/dL (9.8-20.1); Bilirubin, Total 8.4 mg/dL (0.3-1.2); Calc. Creatinine Clearance 0 mL/min (70-130); Calcium 7.9 mg/dL (7.8-10.44); Carbon Dioxide 27 mmol/L (23-31); Chloride 94 mmol/L (98-107); Globulin 3.8 g/dL (2.4-3.5); Glucose 157 mg/dL (83-110); Potassium 3.3 mmol/L (3.5-5.1); Sodium 133 mmol/L (136-145)
[2024-11-23 07:22] LABS: Bilirubin, Direct 5.5 mg/dL (0.1-0.3); Bilirubin, Total 8.1 mg/dL (0.3-1.2)
[2024-11-23 07:28] LABS: Troponin I 0.041 ng/mL (< 0.028)
[2024-11-23] MEDS ORDERED: hydrALAZINE 20 MG/ML VIAL SLOW IVP PRN (08:31)
[2024-11-23] MEDS ORDERED: Ondansetron PF 4 MG/2 ML Vial IVP PRN (08:31)
[2024-11-23] MEDS: TETANUS, DIPHTHERIA TOX,ADULT (TDVAX) 0.5 ML VIAL IM ONE (11:42)
[2024-11-23] MEDS: Acetaminophen 325 MG TAB PO PRN (13:44)
[2024-11-23] MEDS: Methocarbamol 500 MG TAB PO PRN (16:40)
[2024-11-23] MEDS: HYDROcodone/Acetaminophen 5/325 mg Tablet PO PRN (20:52)
[2024-11-24 04:01] LABS: #Basophils Less than 0.03 10x3/uL (0.0-0.2); #Eosinophils 0.11 10x3/uL (0.0-0.7); #Monocytes 0.35 10x3/uL (0.11-0.59); #Neutrophils 2.53 10x3/uL (1.40-6.50); %Basophils 0.3 % (0.0-1.0); %Eosinophils 3.2 % (0.0-10.0); %Lymphocytes 10.9 % (21.0-51.0); %Monocytes 10.3 % (0.0-10.0); %Neutrophils 74.4 % (42.0-75.0); Hematocrit 24.5 % (36.0-47.0); Hemoglobin 8.1 g/dL (12.0-16.0); Mean Corpuscular Hemoglobin 35.1 pg (27.0-31.0); Mean Corpuscular Volume 106.1 fL (78.0-98.0); Platelet Count 79 10x3/uL (130-400); Red Blood Cell (RBC) Count 2.31 mill/uL (4.20-5.40); White Blood Cell (WBC) Count 3.40 10x3/uL (4.8-10.8)
[2024-11-24 04:17] LABS: ALT (SGPT) 48 U/L (Less than 34); AST (SGOT) 93 U/L (11-34); Albumin 1.8 g/dL (3.1-4.5); Alkaline Phosphatase 136 U/L (40-110); Anion Gap 14 mmol/L (10-20); BUN (Urea Nitrogen) 33 mg/dL (9.8-20.1); Bilirubin, Total 7.4 mg/dL (0.3-1.2); Calc. Creatinine Clearance 12 mL/min (70-130); Calcium 7.9 mg/dL (7.8-10.44); Carbon Dioxide 27 mmol/L (23-31); Chloride 94 mmol/L (98-107); Globulin 3.6 g/dL (2.4-3.5); Glucose 142 mg/dL (83-110); Potassium 3.7 mmol/L (3.5-5.1); Sodium 131 mmol/L (136-145)
[2024-11-24 04:36] LABS: HBSAB Concentration Less than 8.00 mIU/mL; Hep B Core Total Ab NONREACTIVE (NonReactive); Hep B Core Total Index 0.55 S/CO (0-0.79); Hep B Surf Ag NONREACTIVE S/CO (NonReactive); Hep C IgG Ab NONREACTIVE S/CO (NonReactive); Hep C Index 0.19 S/CO (0-0.79)
[2024-11-24] MEDS ORDERED: Heparin 10,000 UNITS/ 10 ML VIAL ONE (08:49)
[2024-11-24] MEDS ORDERED: Carvedilol 3.125 MG TAB PO SCH (09:00)
[2024-11-24 09:28] LABS: Troponin I 0.049 ng/mL (< 0.028)
[2024-11-24] MEDS ORDERED: Ropivacaine 0.5% HCl/PF (150 MG/30 ML VIAL) ONE (13:16)
[2024-11-24] MEDS ORDERED: Ondansetron PF 4 MG/2 ML Vial ONE (13:48)
[2024-11-24] MEDS ORDERED: Rocuronium Bromide 10 MG/ML (10ML VIAL) ONE (13:48)
[2024-11-24] MEDS ORDERED: Lidocaine 2% 6 ML (Jelly) SYR ONE (13:51)
[2024-11-24] MEDS ORDERED: CEFAZOLIN 2 GM VIAL ONE (13:57)
[2024-11-24] MEDS ORDERED: PHENYLEPHRINE-NS 100 MCG/ML 10 ML SYRINGE ONE (14:19)
[2024-11-24] MEDS ORDERED: SUGAMMADEX SODIUM 200 MG/2 ML VIAL ONE (15:09)
[2024-11-24] MEDS: Aspirin 81 mg Enteric Coated Tablet PO SCH (21:50)
[2024-11-25 04:17] LABS: #Basophils Less than 0.03 10x3/uL (0.0-0.2); #Eosinophils 0.03 10x3/uL (0.0-0.7); #Monocytes 0.46 10x3/uL (0.11-0.59); #Neutrophils 5.61 10x3/uL (1.40-6.50); %Basophils 0.1 % (0.0-1.0); %Eosinophils 0.4 % (0.0-10.0); %Lymphocytes 7.4 % (21.0-51.0); %Monocytes 6.8 % (0.0-10.0); %Neutrophils 82.6 % (42.0-75.0); Hematocrit 23.8 % (36.0-47.0); Hemoglobin 7.6 g/dL (12.0-16.0); Mean Corpuscular Hemoglobin 35.2 pg (27.0-31.0); Mean Corpuscular Volume 110.2 fL (78.0-98.0); Platelet Count 125 10x3/uL (130-400); Red Blood Cell (RBC) Count 2.16 mill/uL (4.20-5.40); White Blood Cell (WBC) Count 6.79 10x3/uL (4.8-10.8)
[2024-11-25 04:28] LABS: ALT (SGPT) 45 U/L (Less than 34); AST (SGOT) 88 U/L (11-34); Albumin 1.7 g/dL (3.1-4.5); Alkaline Phosphatase 133 U/L (40-110); Anion Gap 18 mmol/L (10-20); BUN (Urea Nitrogen) 25 mg/dL (9.8-20.1); Bilirubin, Total 8.7 mg/dL (0.3-1.2); Calc. Creatinine Clearance 17 mL/min (70-130); Calcium 7.8 mg/dL (7.8-10.44); Carbon Dioxide 23 mmol/L (23-31); Chloride 97 mmol/L (98-107); Globulin 3.4 g/dL (2.4-3.5); Glucose 167 mg/dL (83-110); Potassium 4.8 mmol/L (3.5-5.1); Sodium 133 mmol/L (136-145)
[2024-11-25] MEDS: Senokot S 8.6-50 MG TAB PO SCH (05:24)
[2024-11-25] MEDS: Heparin 5,000 UNITS/ML VIAL SC SCH (08:15)
[2024-11-25] MEDS: Aspirin 81 mg Enteric Coated Tablet PO SCH (08:15)
[2024-11-25] MEDS ORDERED: ENALAPRIL MALEATE 10 MG PO SCH (09:00)
[2024-11-25 10:15] LABS: Hematocrit 21.5 % (36.0-47.0); Hemoglobin 6.9 g/dL (12.0-16.0)
[2024-11-25] MEDS: EPOETIN ALFA-EPBX (ESRD) 10,000 UNITS/ML VIAL SC SCH (13:36)
[2024-11-25] MEDS: Mupirocin 1 GM TUBE TP SCH (20:17)
[2024-11-26 04:14] LABS: #Basophils Less than 0.03 10x3/uL (0.0-0.2); #Eosinophils 0.07 10x3/uL (0.0-0.7); #Monocytes 0.61 10x3/uL (0.11-0.59); #Neutrophils 5.42 10x3/uL (1.40-6.50); %Basophils 0.1 % (0.0-1.0); %Eosinophils 1.0 % (0.0-10.0); %Lymphocytes 9.1 % (21.0-51.0); %Monocytes 8.7 % (0.0-10.0); %Neutrophils 77.1 % (42.0-75.0); Hematocrit 20.6 % (36.0-47.0); Hemoglobin 6.6 g/dL (12.0-16.0); Mean Corpuscular Hemoglobin 34.6 pg (27.0-31.0); Mean Corpuscular Volume 107.9 fL (78.0-98.0); Platelet Count 127 10x3/uL (130-400); Red Blood Cell (RBC) Count 1.91 mill/uL (4.20-5.40); White Blood Cell (WBC) Count 7.03 10x3/uL (4.8-10.8)
[2024-11-26 04:46] LABS: ALT (SGPT) 38 U/L (Less than 34); AST (SGOT) 235 U/L (11-34); Albumin 1.7 g/dL (3.1-4.5); Alkaline Phosphatase 151 U/L (40-110); Anion Gap 15 mmol/L (10-20); BUN (Urea Nitrogen) 48 mg/dL (9.8-20.1); Bilirubin, Total 7.9 mg/dL (0.3-1.2); Calc. Creatinine Clearance 13 mL/min (70-130); Calcium 8.0 mg/dL (7.8-10.44); Carbon Dioxide 24 mmol/L (23-31); Chloride 98 mmol/L (98-107); Globulin 3.4 g/dL (2.4-3.5); Glucose 184 mg/dL (83-110); Magnesium 2.1 mg/dL (1.6-2.6); Potassium 5.0 mmol/L (3.5-5.1); Sodium 132 mmol/L (136-145)
[2024-11-26] MEDS ORDERED: Albumin 25% 25 GM (100 mL) BOT IVPB PRN (08:59)
[2024-11-26] MEDS ORDERED: Heparin 10,000 UNITS/ 10 ML VIAL ONE (09:18)
[2024-11-26] MEDS ORDERED: Albumin 25% 25 GM (100 mL) BOT IVPB SCH (11:30)
[2024-11-26] MEDS: Heparin 5,000 UNITS/ML VIAL SC SCH (13:32)
[2024-11-26 14:30] LABS: Hematocrit 23.5 % (36.0-47.0); Hemoglobin 8.0 g/dL (12.0-16.0); Platelet Count 76 10x3/uL (130-400)
[2024-11-26 19:50] LABS: Hematocrit 23.3 % (36.0-47.0); Hemoglobin 7.8 g/dL (12.0-16.0)
[2024-11-27 05:20] LABS: #Basophils Less than 0.03 10x3/uL (0.0-0.2); #Eosinophils 0.12 10x3/uL (0.0-0.7); #Monocytes 0.39 10x3/uL (0.11-0.59); #Neutrophils 3.27 10x3/uL (1.40-6.50); %Basophils 0.2 % (0.0-1.0); %Eosinophils 2.7 % (0.0-10.0); %Lymphocytes 10.8 % (21.0-51.0); %Monocytes 8.9 % (0.0-10.0); %Neutrophils 74.9 % (42.0-75.0); Hematocrit 23.2 % (36.0-47.0); Hemoglobin 7.7 g/dL (12.0-16.0); Mean Corpuscular Hemoglobin 33.6 pg (27.0-31.0); Mean Corpuscular Volume 101.3 fL (78.0-98.0); Platelet Count 62 10x3/uL (130-400); Red Blood Cell (RBC) Count 2.29 mill/uL (4.20-5.40); White Blood Cell (WBC) Count 4.37 10x3/uL (4.8-10.8)
[2024-11-27 05:43] LABS: ALT (SGPT) 21 U/L (Less than 34); AST (SGOT) 263 U/L (11-34); Albumin 2.0 g/dL (3.1-4.5); Alkaline Phosphatase 146 U/L (40-110); Anion Gap 12 mmol/L (10-20); BUN (Urea Nitrogen) 32 mg/dL (9.8-20.1); Bilirubin, Total 8.1 mg/dL (0.3-1.2); Calc. Creatinine Clearance 18 mL/min (70-130); Calcium 8.0 mg/dL (7.8-10.44); Carbon Dioxide 28 mmol/L (23-31); Chloride 99 mmol/L (98-107); Globulin 3.3 g/dL (2.4-3.5); Glucose 139 mg/dL (83-110); Magnesium 2.0 mg/dL (1.6-2.6); Potassium 4.3 mmol/L (3.5-5.1); Sodium 135 mmol/L (136-145)
[2024-11-27 05:53] VITALS: BMI 33.5
[2024-11-27] MEDS: Lactulose 20 GM (30 mL) UDCUP PO SCH (10:32)
[2024-11-27] MEDS: Aspirin 81 mg Enteric Coated Tablet PO SCH ×2 (10:32→20:14)
[2024-11-28 07:48] LABS: Hematocrit 25.3 % (36.0-47.0); Hemoglobin 8.5 g/dL (12.0-16.0); Mean Corpuscular Hemoglobin 34.3 pg (27.0-31.0); Mean Corpuscular Volume 102.0 fL (78.0-98.0); Platelet Count 59 10x3/uL (130-400); Red Blood Cell (RBC) Count 2.48 mill/uL (4.20-5.40); White Blood Cell (WBC) Count 5.04 10x3/uL (4.8-10.8)
[2024-11-28 08:02] LABS: Anion Gap 15 mmol/L (10-20); BUN (Urea Nitrogen) 47 mg/dL (9.8-20.1); Calc. Creatinine Clearance 16 mL/min (70-130); Calcium 8.1 mg/dL (7.8-10.44); Carbon Dioxide 26 mmol/L (23-31); Chloride 98 mmol/L (98-107); Glucose 142 mg/dL (83-110); Potassium 4.5 mmol/L (3.5-5.1); Sodium 134 mmol/L (136-145)
[2024-11-28 08:14] LABS: Anisocytosis MARKED = >30 cells HPF (0-5); Macrocytosis MODERATE=16-30 cells HPF (0-5); Ovalocytes SLIGHT = 2-5 cells HPF (0-1); Platelet Adequacy Comment Platelets Decreased; Polychromasia SLIGHT = 2-3 cells HPF (0-2)
[2024-11-28 08:19] LABS: #Basophils Less than 0.03 10x3/uL (0.0-0.2); #Eosinophils 0.12 10x3/uL (0.0-0.7); #Monocytes 0.35 10x3/uL (0.11-0.59); #Neutrophils 3.90 10x3/uL (1.40-6.50); %Basophils 0.2 % (0.0-1.0); %Eosinophils 1.6 % (0.0-10.0); %Lymphocytes 7.8 % (21.0-51.0); %Monocytes 7.0 % (0.0-10.0); %Neutrophils 77.8 % (42.0-75.0)
[2024-11-28 09:11] LABS: INR-International Normal Ratio 1.4; Prothrombin Time 17.6 sec (12.0-14.7)
[2024-11-28 09:12] LABS: ALT (SGPT) 9 U/L (Less than 34); AST (SGOT) 202 U/L (11-34); Albumin 2.0 g/dL (3.1-4.5); Alkaline Phosphatase 182 U/L (40-110); Anion Gap 15 mmol/L (10-20); BUN (Urea Nitrogen) 51 mg/dL (9.8-20.1); Bilirubin, Total 10.6 mg/dL (0.3-1.2); Calc. Creatinine Clearance 15 mL/min (70-130); Calcium 8.0 mg/dL (7.8-10.44); Carbon Dioxide 24 mmol/L (23-31); Chloride 98 mmol/L (98-107); Globulin 3.3 g/dL (2.4-3.5); Glucose 136 mg/dL (83-110); Potassium 4.4 mmol/L (3.5-5.1); Sodium 133 mmol/L (136-145)
[2024-11-28] MEDS: cefTRIAXone\\ROCEPHIN 1 GM in Sodium Chloride 0.9% 100 ML IVPB SCH (14:36)
[2024-11-28] MEDS: Lactulose 20 GM (30 mL) UDCUP PO SCH (20:21)
[2024-11-28] MEDS: Bisacodyl 10 MG SUPP PR PRN (23:22)
[2024-11-29 06:10] LABS: INR-International Normal Ratio 1.4; Prothrombin Time 17.5 sec (12.0-14.7)
[2024-11-29] MEDS ORDERED: Albumin 25% 25 GM (100 mL) BOT IVPB SCH (08:30)
[2024-11-29] MEDS: Heparin 5,000 UNITS/ML VIAL SC SCH (10:20)
[2024-11-29] MEDS ORDERED: Heparin 10,000 UNITS/ 10 ML VIAL ONE (11:26)
[2024-11-30 06:03] LABS: ALT (SGPT) 7 U/L (Less than 34); AST (SGOT) 118 U/L (11-34); Albumin 2.3 g/dL (3.1-4.5); Alkaline Phosphatase 202 U/L (40-110); Anion Gap 18 mmol/L (10-20); BUN (Urea Nitrogen) 45 mg/dL (9.8-20.1); Bilirubin, Total 14.9 mg/dL (0.3-1.2); Calc. Creatinine Clearance 19 mL/min (70-130); Calcium 8.6 mg/dL (7.8-10.44); Carbon Dioxide 25 mmol/L (23-31); Chloride 96 mmol/L (98-107); Globulin 3.2 g/dL (2.4-3.5); Glucose 136 mg/dL (83-110); Potassium 4.9 mmol/L (3.5-5.1); Sodium 134 mmol/L (136-145)
[2024-11-30] MEDS: Methocarbamol 500 MG TAB PO PRN (07:19)
[2024-11-30 07:58] LABS: #Basophils Less than 0.03 10x3/uL (0.0-0.2); #Eosinophils 0.08 10x3/uL (0.0-0.7); #Monocytes 0.50 10x3/uL (0.11-0.59); #Neutrophils 5.58 10x3/uL (1.40-6.50); %Basophils 0.3 % (0.0-1.0); %Eosinophils 1.2 % (0.0-10.0); %Lymphocytes 5.3 % (21.0-51.0); %Monocytes 7.6 % (0.0-10.0); %Neutrophils 84.2 % (42.0-75.0); Hematocrit 25.8 % (36.0-47.0); Hemoglobin 8.4 g/dL (12.0-16.0); Mean Corpuscular Hemoglobin 34.3 pg (27.0-31.0); Mean Corpuscular Volume 105.3 fL (78.0-98.0); Platelet Count 58 10x3/uL (130-400); Red Blood Cell (RBC) Count 2.45 mill/uL (4.20-5.40); White Blood Cell (WBC) Count 6.62 10x3/uL (4.8-10.8)
[2024-11-30] MEDS ORDERED: Lidocaine 1% PF 5 ML VIAL ONE (08:50)
[2024-11-30] MEDS ORDERED: Sodium Bicarbonate 2.5 MEQ/5 ML SDV ONE (08:50)
[2024-11-30 09:11] LABS: Anisocytosis MODERATE=16-30 cells HPF (0-5); Burr Cells MODERATE= 6-15 cells HPF (0-1); Macrocytosis SLIGHT = 6-15 cells HPF (0-5); Platelet Adequacy Comment Platelets Decreased; Poikilocytosis SLIGHT = 6-15 cells HPF (0-5); Polychromasia MODERATE = 3-4 cells HPF (0-2); Schistocytes SLIGHT = 2-5 cells HPF (0-1); Spherocytes SLIGHT = 1-5 cells HPF (None Seen)
[2024-11-30 12:16] LABS: RBC Count-Automated (BF) 640 /cu.mm; WBC/Nucleated-Auto (BF) 49 /cu.mm
[2024-11-30 13:41] LABS: BF Segmented Neutrophils 50 %; Cell Count Non Hematic 39 %
[2024-12-01 05:53] LABS: ALT (SGPT) 9 U/L (Less than 34); AST (SGOT) 115 U/L (11-34); Albumin 2.1 g/dL (3.1-4.5); Alkaline Phosphatase 215 U/L (40-110); Anion Gap 16 mmol/L (10-20); BUN (Urea Nitrogen) 56 mg/dL (9.8-20.1); Bilirubin, Total 16.6 mg/dL (0.3-1.2); Calc. Creatinine Clearance 16 mL/min (70-130); Calcium 8.7 mg/dL (7.8-10.44); Carbon Dioxide 24 mmol/L (23-31); Chloride 96 mmol/L (98-107); Globulin 3.3 g/dL (2.4-3.5); Glucose 111 mg/dL (83-110); Potassium 5.1 mmol/L (3.5-5.1); Sodium 131 mmol/L (136-145)
[2024-12-01 06:59] LABS: #Basophils Less than 0.03 10x3/uL (0.0-0.2); #Eosinophils 0.19 10x3/uL (0.0-0.7); #Monocytes 0.53 10x3/uL (0.11-0.59); #Neutrophils 6.40 10x3/uL (1.40-6.50); %Basophils 0.3 % (0.0-1.0); %Eosinophils 2.4 % (0.0-10.0); %Lymphocytes 6.3 % (21.0-51.0); %Monocytes 6.8 % (0.0-10.0); %Neutrophils 82.0 % (42.0-75.0); Hematocrit 28.1 % (36.0-47.0); Hemoglobin 9.3 g/dL (12.0-16.0); Mean Corpuscular Hemoglobin 34.6 pg (27.0-31.0); Mean Corpuscular Volume 104.5 fL (78.0-98.0); Platelet Count 72 10x3/uL (130-400); Red Blood Cell (RBC) Count 2.69 mill/uL (4.20-5.40); White Blood Cell (WBC) Count 7.80 10x3/uL (4.8-10.8)
[2024-12-01] MEDS ORDERED: Albumin 25% 25 GM (100 mL) BOT IVPB PRN (08:55)
[2024-12-01] MEDS ORDERED: Heparin 10,000 UNITS/ 10 ML VIAL ONE (09:59)
[2024-12-01 16:30] VITALS: BMI 34.4
[2024-12-02 07:45] VITALS: BP 103/55; TEMP 97.6
== END 2024-12-02 10:57 | disposition hospice, inpatient (51) | DRG 480 ==
LOC: ERS 04:29 → 2SE 08:38 → SURG A 11-26 18:07
PROVIDERS: ADMIT Internal Medicine; ATTEND Internal Medicine
PROC: 3E03329 Introduction of Other Anti-infective into Peripheral Vein, Percutaneous Approach (ICD-10-PCS; 2024-11-23)
PROC: 0QS906Z Reposition Left Femoral Shaft with Intramedullary Internal Fixation Device, Open Approach (ICD-10-PCS; principal; 2024-11-24)
PROC: 3E033XZ Introduction of Vasopressor into Peripheral Vein, Percutaneous Approach (ICD-10-PCS; 2024-11-24)
PROC: 30233N1 Transfusion of Nonautologous Red Blood Cells into Peripheral Vein, Percutaneous Approach (ICD-10-PCS; 2024-11-26)
PROC: 30233L1 Transfusion of Nonautologous Fresh Plasma into Peripheral Vein, Percutaneous Approach (ICD-10-PCS; 2024-11-26)
PROC: 30233J1 Transfusion of Nonautologous Serum Albumin into Peripheral Vein, Percutaneous Approach (ICD-10-PCS; 2024-11-26)
PROC: 3E0234Z Introduction of Serum, Toxoid and Vaccine into Muscle, Percutaneous Approach (ICD-10-PCS; 2024-11-26)
PROC: 30233K1 Transfusion of Nonautologous Frozen Plasma into Peripheral Vein, Percutaneous Approach (ICD-10-PCS; 2024-11-26)
PROC: 5A1D70Z Performance of Urinary Filtration, Intermittent, Less than 6 Hours Per Day (ICD-10-PCS; 2024-11-29)
PROC: 0W9G3ZZ Drainage of Peritoneal Cavity, Percutaneous Approach (ICD-10-PCS; 2024-11-30)
DX: S72.332A Displaced oblique fracture of shaft of left femur, initial encounter for closed fracture (principal); K72.00 Acute and subacute hepatic failure without coma; N18.6 End stage renal disease; D61.818 Other pancytopenia; I13.2 Hypertensive heart and chronic kidney disease with heart failure and with stage 5 chronic kidney disease, or end stage renal disease; I50.32 Chronic diastolic (congestive) heart failure; D62 Acute posthemorrhagic anemia; R18.8 Other ascites; C22.0 Liver cell carcinoma; E87.1 Hypo-osmolality and hyponatremia; Z51.5 Encounter for palliative care; Z66 Do not resuscitate; K74.60 Unspecified cirrhosis of liver; R79.89 Other specified abnormal findings of blood chemistry; L89.152 Pressure ulcer of sacral region, stage 2; Z99.2 Dependence on renal dialysis; E11.22 Type 2 diabetes mellitus with diabetic chronic kidney disease; E88.09 Other disorders of plasma-protein metabolism, not elsewhere classified; N18.9 Chronic kidney disease, unspecified; I25.10 Atherosclerotic heart disease of native coronary artery without angina pectoris; I27.20 Pulmonary hypertension, unspecified; I48.0 Paroxysmal atrial fibrillation; Z96.652 Presence of left artificial knee joint; Z90.710 Acquired absence of both cervix and uterus; Z23 Encounter for immunization; Z98.890 Other specified postprocedural states; Z82.49 Family history of ischemic heart disease and other diseases of the circulatory system; Z83.3 Family history of diabetes mellitus; Z79.4 Long term (current) use of insulin; Z91.018 Allergy to other foods; Z90.49 Acquired absence of other specified parts of digestive tract; E80.6 Other disorders of bilirubin metabolism; Z79.82 Long term (current) use of aspirin; Z79.899 Other long term (current) drug therapy; I89.0 Lymphedema, not elsewhere classified; W18.11XA Fall from or off toilet without subsequent striking against object, initial encounter; Y92.009 Unspecified place in unspecified non-institutional (private) residence as the place of occurrence of the external cause; I27.81 Cor pulmonale (chronic); I08.1 Rheumatic disorders of both mitral and tricuspid valves; I95.9 Hypotension, unspecified
CPT/HCPCS: 27500; 36415; 36416; 36430; 49083; 71260; 74177; 76705; 80048; 80053; 82042; 82105; 82140; 82247; 82248; 82533; 83036; 83690; 83735; 84157; 84484; 85025; 85060; 85610; 85730; 86704; 86706; 86803; 86850; 86900; 86901; 87070; 87205; 87340; 88112; 88305; 89051; 90935; 93005; 93306; 94760; 96374; 97139; C1713; C1889; G0257; G0390; J0696; J1100; J1644; J2060; J2270; J2405; J2795; J3010; P9016; P9059; Q5105; Q9967

== ENCOUNTER 2024-12-02 11:11 | Inpatient (IN) | payer OTHER ==
[2024-12-02] MEDS ORDERED: Bisacodyl 10 MG SUPP PR PRN (12:06)
[2024-12-02] MEDS ORDERED: diphenhydrAMINE 50 MG/ML VIAL IVP PRN (12:09)
[2024-12-02] MEDS ORDERED: Ondansetron PF 4 MG/2 ML Vial IVP PRN (12:15)
[2024-12-02 18:41] VITALS: BMI 31.7
[2024-12-03] MEDS: Glycopyrrolate 0.4 MG/ 2 ML VIAL SLOW IVP PRN (05:24)
[2024-12-03 07:57] VITALS: TEMP 98.2
[2024-12-03] MEDS: Scopolamine 1 mg/72 hour Patch TOP PRN (11:20)
[2024-12-03 18:56] VITALS: BP 75/42
== END 2024-12-03 22:50 | disposition expired | DRG 951 ==
LOC: SURG A 11:11
PROVIDERS: ADMIT Family Medicine; ATTEND Family Medicine
DX: Z51.5 Encounter for palliative care (principal); S72.001A Fracture of unspecified part of neck of right femur, initial encounter for closed fracture; N18.6 End stage renal disease; C22.9 Malignant neoplasm of liver, not specified as primary or secondary; Z66 Do not resuscitate; K74.60 Unspecified cirrhosis of liver; I48.91 Unspecified atrial fibrillation; I10 Essential (primary) hypertension; H35.30 Unspecified macular degeneration; F41.9 Anxiety disorder, unspecified
CPT/HCPCS: J2060; J2270